=== PATIENT | female | born 1960 | race Caucasian/White ===

== ENCOUNTER → 2018-05-26 | Outpatient (CLI) | payer OTHER ==
[~2018-05-26] MED LIST: BACTRIM DS TAB1 EACH PO
--- NOTE | 2018-05-26 07:41 | EKG ---
[place] [id number] [employer] [facility] [place] [address] ELECTROCARDIOGRAM REPORT Name: KARIE DONNELLY Room #: [facility]#: [id number] ������������������ Admission: 05/26/18 ������������������ Attend Phys: Ishmael Alarcon MD Discharge: ������������������ Date of : 62 Report #: [id number] ����������������������������������������������������������������� [id number] THIS REPORT FOR: //name// [facility] Test Date: 2018-05-26 Test Time: 06:22:00 Pat Name: KARIE DONNELLY Department: Room: Gender: F Beverage Sales Consultant: CHRISTIAN : 1960 Requested By: Ishmael Alarcon Order Number: [id number] MD: Vega Livingston Measurements Intervals [place] Rate: 87 P: 73 VT: 177 QRS: 42 QRSD: 102 T: 52 QT: 365 QTc: 439 Interpretive Statements Sinus rhythm RSR' in V1 or V2, probably normal variant No previous ECG available for comparison Electronically Signed On 05-26-2018 7:40:57 CDT by Vega Livingston [email or web address] ��������������������������������������������� <ELECTRONICALLY SIGNED> ���������������������������������������� By: Vega Livingston MD, [facility] ��������������������������������������������� 05/26/18 0740 0622 06 Vega Livingston MD, FACC /EPI
== END | disposition home or self-care (01) ==
LOC: LITH 06:05
DX: N20.0 Calculus of kidney (principal); Z98.890 Other specified postprocedural states; Z85.828 Personal history of other malignant neoplasm of skin; Z87.440 Personal history of urinary (tract) infections